=== PATIENT | female | born 1945 | race Caucasian/White ===

== ENCOUNTER 2018-12-08 06:00 | Day surgery (SDC) | payer MEDICARE, OTHER ==
[~2018-12-08] VITALS: Ht 160 cm; Wt 91.2 kg
[~2018-12-08 06:00] MED LIST: ASPI81CH PO; ATEN50 PO; CEFU500T30 PO; CHOL10002 PO; Calcium + Vita1 EACH PO; FURO20 PO; Hair, Skin & N1 EACH PO; LEVSOD50 PO; MECL12.5 PO; NITR.4SL SL; Ocuvite Softge1 EAC1 PO; POTCHL10ER PO; TRAM50 PO; Zantac150 MG PO
--- NOTE | 2018-12-08 06:47 | NUR ---
History, Chart, Medications and Allergies reviewed before start of procedure. Patient confirms NPO status and agrees with scheduled surgery. Lungs clear T/O to Auscultation. Patient reports completing Chlorhexadine shower X2 prior to admission to hospital.
--- NOTE | 2018-12-08 07:01 | NUR ---
NOZIN NASAL PLASTIC MOULD MAKER TO NARES BILAT. KNEE HIGH TAWANDA HOSE WITH CALF PAS TO LLE.
--- NOTE | 2018-12-08 09:31 | NUR ---
SENSATION NOTED PRESSURE AT HIGH HIP AREA /LOW WAIST
--- NOTE | 2018-12-08 11:47 | NUR ---
PT GAVE STUDENT NURSE PERMISSION TO ASSIST WITH CARE ON 12/09/2018.
--- NOTE | 2018-12-08 13:25 | NUR ---
PT RESTING IN POSITION OF COMFORT. AMY.
[2018-12-09 05:39] LABS: BASOPHILS ABSOLUTE AUTO 0.02 K/mm3 (0.00-0.23); BASOPHILS PERCENT AUTO 0 % (0-2); EOSINOPHILS ABSOLUTE AUTO 0.09 K/mm3 (0.00-0.68); EOSINOPHILS PERCENT AUTO 1 % (0-6); Hematocrit 36.4 % (33.0-51.0); Hemoglobin 11.9 g/dL (11.5-16.0); IMMATURE GRAN ABSOLUTE AUTO 0.02 K/mm3 (0.00-0.10); IMMATURE GRAN PERCENT AUTO 0 % (0-1); LYMPHOCYTES ABSOLUTE AUTO 2.11 K/mm3 (0.84-5.20); LYMPHOCYTES PERCENT AUTO 24 % (21-46); MONOCYTES ABSOLUTE AUTO 0.99 K/mm3 (0.16-1.47); MONOCYTES PERCENT AUTO 11 % (4-13); Mean Corpuscular HGB 31.3 pg (26.0-34.0); Mean Corpuscular HGB Conc 32.7 g/dL (31.5-36.5); Mean Corpuscular Volume 96 fL (80-100); Mean Platelet Volume 9.2 fL (9.1-12.4); NEUTROPHILS ABSOLUTE AUTO 5.47 K/mm3 (1.96-9.15); NEUTROPHILS PERCENT AUTO 63 % (41-73); Platelet Count 256 K/mm3 (150-400); RDW Coefficient Variation 11.9 % (11.7-14.2); RDW Standard Deviation 41.1 fL (35.1-46.3)
[2018-12-09 06:03] LABS: Anion Gap 9 mmol/L (6-16); Blood Urea Nitrogen 13 mg/dL (8-24); Bun/Creatinine Ratio 19.5 (12.0-20.0); CO2, Blood 23 mmol/L (21-32); Calcium, Blood 8.2 mg/dL (8.5-10.1); Chloride, Blood 105 mmol/L (98-108); Creatinine, Blood 0.67 mg/dL (0.40-1.00); Glomerular Filtration Rate >60 (60-); Glucose, Blood 128 mg/dL (70-99); Potassium, Blood 3.7 mmol/L (3.5-5.5); Sodium, Blood 137 mmol/L (136-145)
--- NOTE | 2018-12-09 07:40 | NUR ---
DR HERE TO SEE PT.
--- NOTE | 2018-12-09 07:55 | NUR ---
SHIFT SUMMARY PT IS POD 1 RIGHT TKA. SHE HAD A BOUT OF EMESIS THIS MORNING AND DID HAVE NAUSEA DURING THE NIGHT WITH PAIN MEDICATIONS, MEDICATED PER EMAR. PT WAS PAINFUL AT HS AND COULD WALK ONLY TO THE BSC, BUT THIS MORNING SHE IS LESS PAINFUL AND ABLE TO MOVE HER LEGS EASIER. MEDICATED FOR PAIN PER EMAR. DRESSING C/D/I, POLAR PACK IN PLACE OVERNIGHT. REPORT PASSED TO ONCOMING SHIFT.
[2018-12-09] MEDS ORDERED: ASPI325 PO (08:52)
[2018-12-09] MEDS ORDERED: Percocet 5-3251 EACH PO (08:52)
[2018-12-09] MEDS ORDERED: HYDR1TAB94 PO (16:11)
--- NOTE | 2018-12-09 16:30 | NUR ---
DISCHARGE: PT EATING AND DRINKING, REPORTS PAIN AND NAUSEA BETTER WITH NORCO. REPORTS TO HAVE FAMILY COME GET SCRIPT FROM OFFICE. PT BEEN CLEARED BY THERAPY TO GO HOME. PT/FAMILY REPORTS UNDERSTANDING OF DISCHARGE INSTRUCTIONS INCLUDING DRESSING CHANGES AND ICE MACHINE WHICH WERE SENT WITH PT. IV OUT WNL. FAMILY REPORTS HAVING APPR EQUIP AT HOME.
== END 2018-12-09 16:44 | disposition home or self-care (01) ==
LOC: ORSCMMR 06:00 → ORD 07:30 → SURS 10:51 → ORSCMMR 12-09 16:44 → SURS 12-09 16:44
PROVIDERS: Orthopaedic Surgery
PROC: 0SRC0JA Replacement of Right Knee Joint with Synthetic Substitute, Uncemented, Open Approach (ICD-10-PCS; principal; 2018-12-08 07:30)
DX: M17.11 Unilateral primary osteoarthritis, right knee (principal); I10 Essential (primary) hypertension; E03.9 Hypothyroidism, unspecified; Z87.891 Personal history of nicotine dependence; Z79.899 Other long term (current) drug therapy; E66.01 Morbid (severe) obesity due to excess calories; Z68.35 Body mass index [BMI] 35.0-35.9, adult
CPT/HCPCS: 36415; 73560-RT; 80048; 85025; 86850; 86900; 86901; 88300; 97110; 97116; 97162; 97530; C1776; J0171; J0690; J0735; J1885; J2250; J2405; J2795; J3010; J7120

== ENCOUNTER → 2021-07-17 | Outpatient (CLI) | payer MEDICARE, OTHER ==
[~2021-07-17] MED LIST changes: +ASPI325 PO; +HYDR1TAB94 PO; +Percocet 5-3251 EACH PO
[2021-07-18 09:28] LABS: Stool Occult Bld Immuno 1 Negative (NEGATIVE)
== END | disposition home or self-care (01) ==
LOC: LAB SHORT 08:00
PROVIDERS: Student in an Organized Health Care Education/Training Program
DX: Z12.11 Encounter for screening for malignant neoplasm of colon (principal)
CPT/HCPCS: G0328

== ENCOUNTER 2024-04-15 14:31 | Emergency (ER) | payer OTHER, MEDICARE ==
[~2024-04-15] VITALS: Ht 167.6 cm; Wt 83.9 kg
[2024-04-15] MEDS ORDERED: TraMADol HCl 50 MG Tab PO ONE (17:10)
[2024-04-15] MEDS ORDERED: Ultram50 MG PO (17:11)
[2024-04-15 17:25] VITALS: BP 143/72
== END 2024-04-15 17:25 | disposition home or self-care (01) ==
LOC: ER 14:31
DX: S02.2XXA Fracture of nasal bones, initial encounter for closed fracture (principal); S01.21XA Laceration without foreign body of nose, initial encounter; M54.2 Cervicalgia; G89.29 Other chronic pain; I10 Essential (primary) hypertension; E03.9 Hypothyroidism, unspecified; W01.0XXA Fall on same level from slipping, tripping and stumbling without subsequent striking against object, initial encounter; Z79.899 Other long term (current) drug therapy; Z79.82 Long term (current) use of aspirin; Z88.5 Allergy status to narcotic agent; Z88.7 Allergy status to serum and vaccine
CPT/HCPCS: 12011; 70450; 72125; 99283-25; A9270

== ENCOUNTER → 2025-08-30 | Outpatient (CLI) | payer MEDICARE, OTHER ==
[~2025-08-30] MED LIST changes: +Ultram50 MG PO
[2025-08-30 19:36] LABS: BASOPHILS ABSOLUTE AUTO 0.03 K/mm3 (0.00-0.23); BASOPHILS PERCENT AUTO 0 % (0-2); EOSINOPHILS ABSOLUTE AUTO 0.14 K/mm3 (0.00-0.68); EOSINOPHILS PERCENT AUTO 2 % (0-6); Hematocrit 42.3 % (33.0-51.0); Hemoglobin 13.4 g/dL (11.5-16.0); IMMATURE GRAN ABSOLUTE AUTO 0.02 K/mm3 (0.00-0.10); IMMATURE GRAN PERCENT AUTO 0 % (0-1); LYMPHOCYTES ABSOLUTE AUTO 2.10 K/mm3 (0.84-5.20); LYMPHOCYTES PERCENT AUTO 30 % (21-46); MONOCYTES ABSOLUTE AUTO 0.61 K/mm3 (0.16-1.47); MONOCYTES PERCENT AUTO 9 % (4-13); Mean Corpuscular HGB Conc 31.7 g/dL (31.5-36.5); Mean Corpuscular Volume 97 fL (80-100); NEUTROPHILS ABSOLUTE AUTO 4.11 K/mm3 (1.96-9.15); NEUTROPHILS PERCENT AUTO 59 % (41-73); NRBC ABSOLUTE 0.00 K/mm3 (0.00-0.02); NRBC Auto 0.0 /100 WBC (0.0-0.2); Platelet Count 299 K/mm3 (150-400); RDW Coefficient Variation 12.6 % (11.7-14.2); RDW Standard Deviation 45.0 fL (35.1-46.3)
[2025-08-30 22:16] LABS: Alanine Aminotransfer (ALT/SGP 30 U/L (12-78); Albumin, Blood 3.8 g/dL (3.4-5.0); Albumin/Globulin Ratio 1.2 (0.8-1.8); Anion Gap 9 mmol/L (3-11); Aspartate Aminotrans (AST/SGOT 24 U/L (12-37); Bilirubin, Total 0.5 mg/dL (0.1-1.0); Blood Urea Nitrogen 10 mg/dL (8-24); CHOL/HDL RATIO 3.1; CO2, Blood 29 mmol/L (21-32); Calcium, Blood 8.9 mg/dL (8.5-10.1); Chloride, Blood 103 mmol/L (98-108); Cholesterol 166 mg/dL (50-200); Creatinine, Blood 0.78 mg/dL (0.40-1.00); Globulin, Blood 3.3 g/dL (2.2-4.0); Glucose, Blood 93 mg/dL (70-99); HDL Cholesterol 53 mg/dL (>39); LDL/HDL RATIO 1.2; Low Density Lipoprotein Chol 65 mg/dL (0-110); Potassium, Blood 3.9 mmol/L (3.5-5.5); Sodium, Blood 137 mmol/L (136-145); Thyroid Stimulating Hormone 0.842 uIU/mL (0.360-4.800); Total Protein, Blood 7.1 g/dL (6.4-8.2); Triglycerides 240 mg/dL (30-160); Very Low Density Lipoprot Chol 48 mg/dL (6-32)
== END | disposition home or self-care (01) ==
LOC: LAB 19:22 → LAB SHORT 19:22
PROVIDERS: Student in an Organized Health Care Education/Training Program
DX: E03.9 Hypothyroidism, unspecified (principal); E78.5 Hyperlipidemia, unspecified; E66.811 Obesity, class 1; Z68.34 Body mass index [BMI] 34.0-34.9, adult; Z71.3 Dietary counseling and surveillance
CPT/HCPCS: 80053; 80061; 84443; 85025